=== PATIENT | female | born 1950 | race Caucasian/White ===

== ENCOUNTER 2020-01-05 08:10 | Day surgery (SDC) | payer MEDICARE ==
[~2020-01-05] VITALS: Ht 160 cm; Wt 117.9 kg
[2020-01-05 08:48] VITALS: BP 159/96
[2020-01-05] MEDS ORDERED: WARF-36 PO (08:48)
[2020-01-05] MEDS ORDERED: WARF7.5T46 PO (08:48)
[2020-01-05] MEDS ORDERED: SIMV20TA19 PO (08:48)
[2020-01-05] MEDS ORDERED: FLUT1BLS13 INH (08:48)
[2020-01-05] MEDS ORDERED: TIOT18CA INH (08:48)
[2020-01-05] MEDS ORDERED: BUPR100T11 PO (08:48)
[2020-01-05] MEDS ORDERED: CHLORHEXIDINE 15 ML UDC MM STA (08:54)
[2020-01-05] MEDS ORDERED: DIPHENHYDRAMINE 50 MG/ML, 1ML IVPush PRN (09:00)
[2020-01-05] MEDS ORDERED: LORazepam 2 MG/ML, 1ML IVPush PRN (09:00)
[2020-01-05] MEDS ORDERED: LABETALOL 5MG/ML, 20ML IV PRN (09:00)
[2020-01-05] MEDS ORDERED: HYDROcodone/APAP 7.5-325MG/15ML UDC PO PRN (09:00)
[2020-01-05] MEDS ORDERED: METHOCARBAMOL 1,000 MG in DEXTROSE 5% 100 ML IV PRN (09:00)
[2020-01-05] MEDS ORDERED: ALBUTEROL/IPRATROPIUM 2.5MG/0.5MG, 3 ML NPPB PRN (09:00)
[2020-01-05] MEDS ORDERED: ONDANSETRON 2MG/ML, 2ML IVPush PRN (09:00)
[2020-01-05] MEDS ORDERED: HYDROmorphone 1 MG/ML, 1ML INJ IVPush PRN (09:00)
[2020-01-05] MEDS ORDERED: LACTATED RINGERS 1,000 ML IV SCH (09:00)
[2020-01-05] MEDS ORDERED: MIDAZOLAM 1 MG/ML, 2ML IV PRN (09:00)
[2020-01-05] MEDS ORDERED: DIAZEPAM 5 MG/ML, 2ML IVPush PRN (09:00)
[2020-01-05] MEDS ORDERED: EPHEDRINE 50 MG/ML, 1ML IVPush PRN (09:00)
[2020-01-05] MEDS ORDERED: HALOPERIDOL 5 MG/ML IV PRN (09:00)
[2020-01-05] MEDS ORDERED: OXYcodone 5 MG/5 ML ORAL.SOL UDC PO PRN (09:00)
[2020-01-05] MEDS ORDERED: MEPERIDINE/PF 25MG/0.5ML IVPush PRN (09:00)
[2020-01-05] MEDS ORDERED: FENTANYL PF 100 MCG/2ML IV PRN (09:00)
[2020-01-05] MEDS ORDERED: hydrALAzine 20 MG/ML, 1ML IV PRN (09:00)
[2020-01-05] MEDS ORDERED: EPHEDRINE 50 MG/ML, 1ML IM PRN (09:00)
[2020-01-05] MEDS ORDERED: METOCLOPRAMIDE 5 MG/ML, 2ML IVPush PRN (09:00)
[2020-01-05] MEDS ORDERED: LIDOCAINE-MPF 2% ,5ML ONE (09:08)
[2020-01-05] MEDS ORDERED: DEXAMETHASONE 4 MG/ML, 1ML ONE (09:08)
[2020-01-05] MEDS ORDERED: FENTANYL PF 100 MCG/2ML ONE (09:08)
[2020-01-05] MEDS ORDERED: GLYCOPYRROLATE 0.2MG/1ML, 5ML ONE (09:08)
[2020-01-05] MEDS ORDERED: PROPOFOL 10 MG/ML, 20ML ONE (09:08)
[2020-01-05] MEDS ORDERED: MIDAZOLAM 1 MG/ML, 2ML ONE (09:08)
[2020-01-05 09:38] LABS: INTERNATIONAL NORMALIZED RATIO 0.97 (0.93-1.1)
== END 2020-01-05 11:45 | disposition home or self-care (01) ==
LOC: OUT 08:10
PROVIDERS: ATTEND Internal Medicine Gastroenterology
DX: Z12.11 Encounter for screening for malignant neoplasm of colon (principal); D12.4 Benign neoplasm of descending colon; K59.00 Constipation, unspecified; K64.0 First degree hemorrhoids; K57.30 Diverticulosis of large intestine without perforation or abscess without bleeding; J44.9 Chronic obstructive pulmonary disease, unspecified; E66.01 Morbid (severe) obesity due to excess calories; Z90.49 Acquired absence of other specified parts of digestive tract; Z98.890 Other specified postprocedural states; Z85.3 Personal history of malignant neoplasm of breast; Z85.038 Personal history of other malignant neoplasm of large intestine; Z79.01 Long term (current) use of anticoagulants; Z86.718 Personal history of other venous thrombosis and embolism; Z79.899 Other long term (current) drug therapy; Z87.891 Personal history of nicotine dependence; Z68.42 Body mass index [BMI] 45.0-49.9, adult; Z86.010 Personal history of colon polyps; Z20.828 Contact with and (suspected) exposure to other viral communicable diseases
CPT/HCPCS: 36415; 45385; 85610; 87635; 88305; 93005; J1100; J2250; J2704; J3010; J7120

== ENCOUNTER 2020-06-07 12:49 | Outpatient (CLI) | payer MEDICARE ==
[~2020-06-07 12:49] MED LIST: BUPR100T11 PO; FLUT1BLS13 INH; SIMV20TA19 PO; TIOT18CA INH; WARF-36 PO; WARF7.5T46 PO
== END 2020-06-07 23:59 | disposition home or self-care (01) ==
LOC: CFH 12:49
DX: Z02.9 Encounter for administrative examinations, unspecified (principal)